=== PATIENT | male | born 1995 | race Two or more races ===

== ENCOUNTER 2017-05-26 01:05 | Emergency (ER) | payer SELFPAY ==
[2017-05-26 01:13] VITALS: BMI 25.7
[2017-05-26 01:37] VITALS: BP 152/88; PULSE 99; RESP 18; TEMP 98.1; O2SAT 99
--- NOTE | 2017-05-26 02:05 | ED PDOC ---
HPI: Psych/Substance Abuse Time Seen by Provider: 05/26/17 01:12 Chief Complaint (Nursing): Alcohol Ingestion Chief Complaint (Provider): Locked out of apartment History Per: Patient History/Exam Limitations: no limitations Modifying Factor(s): Alcohol Severity: None Additional Complaint(s): 21 year old male with no pertinent medical history is brought into the ED by EMS after he was locked out of his apartment. Patient's unidentified neighbor notified EMS that the patient was locked out of his apartment and that he had drank alcohol earlier. Patient states that he was walking out of his apartment, and accidentally locked himself out. He admits to drinking alcohol. Patient denies having any medical complaints and declines any medical services. PMD: not provided. Past Medical History Reviewed: Historical Data, Nursing Documentation, Vital Signs Vital Signs: Last Vital Signs Temp 98.1 F 05/26/17 01:11 Pulse 99 H 05/26/17 01:11 Resp 18 05/26/17 01:11 BP 152/88 H 05/26/17 01:11 Pulse Ox 99 05/26/17 01:11 - Medical History PMH: No Chronic Diseases - Surgical History Surgical History: No Surg Hx - Family History Family History: States: No Known Family Hx - Social History Current smoker - smoking cessation education provided: No Alcohol: Social Drugs: Denies - Allergies Allergies/Adverse Reactions: Allergies Allergy/AdvReac Type Severity Reaction Status Date / Time No Known Allergies Allergy Verified 05/26/17 01:13 Review of Systems ROS Statement: Except As Marked, All Systems Reviewed And Found Negative Physical Exam - Reviewed Nursing Documentation Reviewed: Yes Vital Signs Reviewed: Yes - Physical Exam Appears: Positive for: Well, Non-toxic, No Acute Distress Head Exam: Positive for: ATRAUMATIC, NORMOCEPHALIC Skin: Positive for: Normal Color, Warm, Dry Eye Exam: Positive for: Normal appearance ENT: Positive for: Normal ENT Inspection Neck: Positive for: Normal Cardiovascular/Chest: Positive for: Regular Rate, Rhythm Respiratory: Positive for: Normal Breath Sounds. Negative for: Respiratory Distress Neurologic/Psych: Positive for: Alert, Oriented (3x), Gait (steady), Other ( patient has fluent speech) - ECG O2 Sat by Pulse Oximetry: 99 (RA) Pulse Ox Interpretation: Normal Medical Decision Making Medical Decision Makin:12 Initial impression: 21 year old male locked out of his apartment. Plan: Patient is alert and oriented 3x, has a steady gait, has fluent speech, and denies having any medical complaints. Patient is table for discharge. Scribe Attestation: Documented by Belle Boogie, acting as a scribe for Espinoza Morillo MD. Provider Scribe Attestation: All medical record entries made by the Scribe were at my direction and personally dictated by me. I have reviewed the chart and agree that the record accurately reflects my personal performance of the history, physical exam, medical decision making, and the department course for this patient. I have also personally directed, reviewed, and agree with the discharge instructions and disposition. Disposition - Clinical Impression Clinical Impression: Alcohol use - Disposition Disposition Time: 01:12 Condition: FAIR Forms: [employer] (Uzbek)
== END 2017-05-26 01:40 | disposition home or self-care (01) ==
LOC: H.ER 01:05
DX: F10.10 Alcohol abuse, uncomplicated (principal)